=== PATIENT | female | born 1970 | race Caucasian/White ===

== ENCOUNTER → 2016-10-15 | Outpatient (CLI) | payer BC, MEDICARE | LOC: HEART 5 09:43 | DX: R06.02 Shortness of breath (principal) | CPT/HCPCS: 94010 ==

== ENCOUNTER → 2016-10-30 | Outpatient (CLI) | payer BC, MEDICARE | LOC: SLEEP 10:26 | DX: G47.33 Obstructive sleep apnea (adult) (pediatric) (principal) | CPT/HCPCS: 95810 ==

== ENCOUNTER 2021-08-17 11:46 | Emergency (ER) | payer BC, MEDICARE, OTHER ==
[~2021-08-17 11:46] MED LIST: ADVIL PM CAPLE1 EACH PO; ALBUTEROL0.63 MG/3 INH; AMOXICILLIN500 MG PO; DIFLUCAN150 MG PO; HUMALOG MI100 UNIT/3 SQ; LANTUS100 UNIT/1 SQ; LASIX80 MG PO; NEURONTIN 400400 MG PO; NITROSTAT0.4 MG SL; OXYGEN; REQUIP0.5 MG PO; ROBAXIN500 MG PO; TYLENOL 8 HOUR650 MG PO; ZOFRAN4 MG PO
== END 2021-08-17 15:15 | disposition home or self-care (01) ==
LOC: ER1 11:46
DX: S01.81XA Laceration without foreign body of other part of head, initial encounter (principal); E11.9 Type 2 diabetes mellitus without complications; J44.9 Chronic obstructive pulmonary disease, unspecified; I51.9 Heart disease, unspecified; F17.200 Nicotine dependence, unspecified, uncomplicated; W19.XXXA Unspecified fall, initial encounter; Y92.009 Unspecified place in unspecified non-institutional (private) residence as the place of occurrence of the external cause
CPT/HCPCS: 12011; 90471; 90714; 99282